=== PATIENT | female | born 1960 | race Caucasian/White ===

== ENCOUNTER 2020-12-17 06:45 | Day surgery (SDC) | payer OTHER ==
[2020-12-16 10:30] LABS: COVID AG,FIA SOURCE NASOPHARYNGEAL
[~2020-12-17] VITALS: Ht 157.5 cm; Wt 70.5 kg
[~2020-12-17 06:45] MED LIST: ALBU90AE IH; ASPI-1522 PO; DOXY100C40 PO; FAMO20TA8 PO; FLUT16H NASAL; METF-960 PO; MONT10TA32 PO; PRED10 PO
[2020-12-17] MEDS ORDERED: LIDOCAINE 4% 50 ML SOLUTION TP ONE (06:46)
[2020-12-17] MEDS ORDERED: LIDOCAINE 2% 30 ML JELLY TP ONE (06:46)
[2020-12-17] MEDS ORDERED: BENZOCAINE 20% 50 MCG/SPRAY 57 GM TP ONE (06:46)
[2020-12-17] MEDS ORDERED: ALBUTEROL SULFATE 2.5 MG/0.5 ML NEB SOLUTION NEB ONE (06:46)
[2020-12-17] MEDS ORDERED: SODIUM CHLORIDE 0.9% 1,000 ML IV ONE (07:00)
[2020-12-17] MEDS ORDERED: SODIUM CHLORIDE 0.9% 1,000 ML ONE (07:04)
[2020-12-17 07:42] LABS: GLUCOMETER DEV NAME(LOC) SDS.; GLUCOSE,POINT OF CARE 116 MG/DL (70-110)
[2020-12-17] MEDS ORDERED: FentaNYL CITRATE PF 100 MCG/2 ML VIAL ONE (08:10)
[2020-12-17] MEDS ORDERED: MIDAZOLAM HCL 2 MG/2 ML VIAL ONE (08:10)
[2020-12-17] MEDS ORDERED: MethylPREDNISolone SOD SUCC 125 MG/2 ML VIAL IVP ONE (09:00)
[2020-12-17] MEDS ORDERED: MethylPREDNISolone SOD SUCC 125 MG/2 ML VIAL ONE (09:22)
[2020-12-17] MEDS ORDERED: OXYGEN THERAPY IH SCH (20:00)
== END 2020-12-17 10:30 | disposition home or self-care (01) ==
LOC: SURGERY 06:45
PROVIDERS: ATTEND Internal Medicine Critical Care Medicine
DX: R05 Cough (principal); R91.1 Solitary pulmonary nodule; R06.2 Wheezing; R49.0 Dysphonia; J84.9 Interstitial pulmonary disease, unspecified; Z20.822 Contact with and (suspected) exposure to COVID-19; J34.89 Other specified disorders of nose and nasal sinuses; J98.8 Other specified respiratory disorders; J38.4 Edema of larynx; B37.0 Candidal stomatitis; I10 Essential (primary) hypertension; E11.9 Type 2 diabetes mellitus without complications; Z79.899 Other long term (current) drug therapy; Z98.890 Other specified postprocedural states
CPT/HCPCS: 31623; 31624; 71045; 82962; 87015; 87070; 87101; 87205; 87206; 87220; 87426; 88108; 88184; 88185; 88312; C9803; J2250; J2930; J3010; J7030; J7613; Z7610

== ENCOUNTER 2021-08-12 12:51 | Observation (INO) | payer OTHER ==
[~2021-08-12] VITALS: Ht 157.5 cm; Wt 70.0 kg
[~2021-08-12 12:51] MED LIST changes: -BECL10.62 IH; -FentaNYL CITRATE PF 100 MCG/2 ML VIAL ONE; -LORazepam 2 MG/ML VIAL IVP ONE; -LORazepam 2 MG/ML VIAL ONE; -MIDAZOLAM HCL 5 MG/ML VIAL ONE; -MethylPREDNISolone SOD SUCC 125 MG/2 ML VIAL IVP ONE; -MethylPREDNISolone SOD SUCC 125 MG/2 ML VIAL ONE; -OXYGEN THERAPY IH SCH; -SODIUM CHLORIDE 0.9% 1,000 ML IV ONE; -SODIUM CHLORIDE 0.9% 1,000 ML ONE
[2021-08-12 13:32] LABS: EOSINOPHILS % (AUTO) 0 % (1.0-6.0); HEMATOCRIT 37.2 % (36-46); HEMOGLOBIN 11.9 g/dL (12.0-16.0); LYMPHOCYTES # (AUTO) 0.5 K/uL (1.0-4.8); LYMPHOCYTES % (AUTO) 3.7 % (22.0-44.0); MEAN CORPUSCULAR HEMOGLOBIN 27.9 pg (26.0-34.0); MEAN CORPUSCULAR HGB CONC 31.8 G/dL (31.0-37.0); MEAN CORPUSCULAR VOLUME 88 fL (80-100); MONOCYTES # (AUTO) 0.1 K/uL (0.1-1.0); MONOCYTES % (AUTO) 1.1 % (2.0-9.0); NEUTROPHILS # (AUTO) 12.2 K/uL (1.8-7.7); NEUTROPHILS % (AUTO) 95.2 % (40.0-70.0); PLATELET COUNT (AUTO) 327 K/uL (150-450); RED BLOOD CELL COUNT(AUTO) 4.24 MIL/uL (4.00-5.20); RED CELL DISTRIBUTION WIDTH 13.5 % (11.5-14.5)
[2021-08-12 13:35] LABS: ANION GAP 14 mmol/L (8-16); CALCIUM, TOTAL 8.1 mg/dL (8.8-10.5); CARBON DIOXIDE 24 mmol/L (22-29); CHLORIDE 106 mmol/L (98-107); CREATININE 0.72 mg/dL (0.60-1.30); GLOMERULAR FILTR. RATE CALC > 60 mL/min (>60); GLUCOSE,RANDOM 261 mg/dL (70-110); POTASSIUM 3.5 mmol/L (3.5-5.1); SODIUM SERUM 144 mmol/L (136-145); UREA NITROGEN, BLOOD 13 mg/dL (7-18)
[2021-08-12 13:41] LABS: ALANINE AMINOTRANSFERASE 21 U/L (12-78); ALBUMIN 3.5 g/dL (3.4-5.0); ALKALINE PHOSPHATASE 58 U/L (46-116); ASPARTATE AMINOTRANSFERASE 20 U/L (15-37); BILIRUBIN,TOTAL 0.2 mg/dL (0.1-1.0); LIPASE 126 U/L (73-393); TOTAL PROTEIN, SERUM 7.3 g/dL (6.4-8.2)
[2021-08-12] MEDS ORDERED: ACETAMINOPHEN 325 MG TABLET PO ONE (13:45)
[2021-08-12] MEDS ORDERED: SODIUM CHLORIDE 0.9% 1,000 ML IV ONE ×3 (13:45→16:45)
[2021-08-12 13:46] LABS: LACTIC ACID 4.3 mmol/L (0.4-2.0)
[2021-08-12 13:47] LABS: B-TYPE NATRIURETIC PEPTIDE 26 pg/mL (0-100)
[2021-08-12] MEDS ORDERED: PIPERACILLIN SODIUM/TAZOBACTAM 4.5 GM in DEXTROSE 5%-WATER 100 ML IV ONE (15:45)
[2021-08-12] MEDS ORDERED: VANCOMYCIN HCL 1.25 GM in DEXTROSE 5%-WATER 250 ML IV ONE (15:45)
[2021-08-12] MEDS ORDERED: ONDANSETRON HCL 4 MG/2 ML VIAL IVP PRN ×2 (16:30→16:45)
[2021-08-12] MEDS ORDERED: 0.9% SODIUM CHLORIDE 10 ML SYRINGE IVP PRN (16:30)
[2021-08-12] MEDS ORDERED: ACETAMINOPHEN 325 MG TABLET PO PRN ×2 (16:30→16:45)
[2021-08-12] MEDS ORDERED: SODIUM CHLORIDE 0.9% 100 ML ONE (16:35)
[2021-08-12] MEDS ORDERED: ALBUTEROL SULFATE HFA 90 MCG/PUFF 8 GM INHALER IH PRN (16:45)
[2021-08-12] MEDS ORDERED: MAGNESIUM HYDROXIDE SUSPENSION 30 ML UDCUP PO PRN (16:45)
[2021-08-12] MEDS ORDERED: BISACODYL 10 MG RECTAL RECTAL SUPPOSITORY PR PRN (16:45)
[2021-08-12] MEDS ORDERED: HYDROCODONE/ACETAMINOPHEN 5-325 MG TABLET PO PRN (16:45)
[2021-08-12] MEDS ORDERED: *CLINICAL-LEVOFLOXACIN IVPB DOSING CLINICAL ONE (16:45)
[2021-08-12] MEDS ORDERED: ZOLPIDEM TARTRATE 5 MG TABLET PO PRN (16:45)
[2021-08-12] MEDS ORDERED: MORPHINE SULFATE 2 MG/ML SYRINGE IVP PRN (16:45)
[2021-08-12 16:46] LABS: COVID AG,FIA SOURCE NASOPHARYNGEAL
[2021-08-12 16:48] LABS: CREATINE KINASE, TOTAL ONLY 145 U/L (26-192)
[2021-08-12] MEDS ORDERED: DEXTROSE 50%-WATER 25 GM/50 ML SYRINGE IVP PRN (17:00)
[2021-08-12] MEDS ORDERED: INSULIN LISPRO 100 UNITS/ML SQ PRN (17:00)
[2021-08-12] MEDS: CLINDAMYCIN 600 MG/D5% WATER 50 ML IV SCH ×2 (17:37→23:21)
[2021-08-12] MEDS ORDERED: LEVOFLOXACIN 750 MG/D5% WATER 150 ML IV SCH (18:00)
[2021-08-12 18:56] VITALS: BP 134/87
[2021-08-12 19:34] VITALS: BP 118/72
[2021-08-12] MEDS: DOCUSATE SODIUM 100 MG CAPSULE PO SCH (20:40)
[2021-08-12] MEDS: HEPARIN SODIUM,PORCINE 5,000 UNITS/ML VIAL SQ SCH (23:20)
[2021-08-12 23:21] VITALS: BP 132/72
[2021-08-13 04:04] VITALS: BP 112/63
[2021-08-13 06:55] LABS: BASOPHILS % (AUTO) 0.2 % (0.0-2.0); EOSINOPHILS % (AUTO) 0.1 % (1.0-6.0); HEMATOCRIT 37.8 % (36-46); LYMPHOCYTES # (AUTO) 2.3 K/uL (1.0-4.8); LYMPHOCYTES % (AUTO) 18.1 % (22.0-44.0); MEAN CORPUSCULAR HEMOGLOBIN 27.9 pg (26.0-34.0); MEAN CORPUSCULAR HGB CONC 31.6 G/dL (31.0-37.0); MEAN CORPUSCULAR VOLUME 88 fL (80-100); MONOCYTES # (AUTO) 0.9 K/uL (0.1-1.0); MONOCYTES % (AUTO) 7.3 % (2.0-9.0); NEUTROPHILS # (AUTO) 9.3 K/uL (1.8-7.7); NEUTROPHILS % (AUTO) 74.3 % (40.0-70.0); PLATELET COUNT (AUTO) 313 K/uL (150-450); RED BLOOD CELL COUNT(AUTO) 4.29 MIL/uL (4.00-5.20); RED CELL DISTRIBUTION WIDTH 13.7 % (11.5-14.5)
[2021-08-13 07:17] LABS: ALANINE AMINOTRANSFERASE 22 U/L (12-78); ALBUMIN 3.3 g/dL (3.4-5.0); ALKALINE PHOSPHATASE 54 U/L (46-116); ANION GAP 9 mmol/L (8-16); ASPARTATE AMINOTRANSFERASE 14 U/L (15-37); BILIRUBIN,TOTAL 0.4 mg/dL (0.1-1.0); CALCIUM, TOTAL 8.6 mg/dL (8.8-10.5); CARBON DIOXIDE 26 mmol/L (22-29); CHLORIDE 108 mmol/L (98-107); CREATININE 0.54 mg/dL (0.60-1.30); GLOMERULAR FILTR. RATE CALC > 60 mL/min (>60); GLUCOSE,RANDOM 96 mg/dL (70-110); POTASSIUM 4.4 mmol/L (3.5-5.1); SODIUM SERUM 143 mmol/L (136-145); TOTAL PROTEIN, SERUM 7.5 g/dL (6.4-8.2); UREA NITROGEN, BLOOD 8 mg/dL (7-18)
[2021-08-13 07:20] VITALS: BP 117/64
[2021-08-13] MEDS ORDERED: SODIUM CHLORIDE 0.9% 250 ML IV ONE (08:01)
[2021-08-13] MEDS: CLINDAMYCIN 600 MG/D5% WATER 50 ML IV SCH (08:06)
[2021-08-13] MEDS: DOCUSATE SODIUM 100 MG CAPSULE PO SCH (08:07)
[2021-08-13] MEDS: HEPARIN SODIUM,PORCINE 5,000 UNITS/ML VIAL SQ SCH (08:08)
[2021-08-13] MEDS ORDERED: MONTELUKAST SODIUM 10 MG TABLET PO SCH (09:00)
[2021-08-13] MEDS ORDERED: FLUTICASONE PROPIONATE 50 MCG/SPRAY 16 GM NASAL SPRAY NASAL SCH (09:00)
[2021-08-13] MEDS ORDERED: MetFORMIN HCL 500 MG TABLET PO SCH (09:00)
[2021-08-13] MEDS ORDERED: PANTOPRAZOLE SODIUM 40 MG DR TABLET PO SCH (09:00)
[2021-08-13] MEDS ORDERED: ASPIRIN 81 MG DR TABLET PO SCH (09:00)
[2021-08-13] MEDS ORDERED: PredniSONE 10 MG TABLET PO SCH (09:00)
[2021-08-13 11:11] VITALS: BP 130/70
[2021-08-13] MEDS ORDERED: BECL10.62 IH (15:18)
[2021-08-13 18:27] LABS: GLUCOMETER DEV NAME(LOC) 5N.1C; GLUCOSE,POINT OF CARE 166 MG/DL (70-110)
[2021-08-13 20:44] LABS: GLUCOMETER DEV NAME(LOC) 5S.1; GLUCOSE,POINT OF CARE 80 MG/DL (70-110)
== END 2021-08-13 16:00 | disposition home or self-care (01) ==
LOC: EMS 12:55 → 5S 18:12 → INTOOBSV 18:12
PROVIDERS: ADMIT Internal Medicine; ATTEND Internal Medicine
DX: I49.8 Other specified cardiac arrhythmias (principal); R65.10 Systemic inflammatory response syndrome (SIRS) of non-infectious origin without acute organ dysfunction; Z20.822 Contact with and (suspected) exposure to COVID-19; D64.9 Anemia, unspecified; B37.0 Candidal stomatitis; J45.909 Unspecified asthma, uncomplicated; E87.2 Acidosis; E11.9 Type 2 diabetes mellitus without complications; Z79.82 Long term (current) use of aspirin; Z79.84 Long term (current) use of oral hypoglycemic drugs; Z79.899 Other long term (current) drug therapy
CPT/HCPCS: 36415 ×2; 71045; 71275; 80053 ×2; 82550; 82962; 83605 ×2; 83690; 83880; 84484; 85025 ×2; 87040; 87426; 93005; 96361 ×2; 96365; 96366 ×2; 96367; 96368; 96372 ×2; 96375; 99219 ×2; 99291; J1644 ×2; J1956; J2405; J2543; J3370; J3490; J7030; J7050 ×2; J7060 ×2; J7512; G0378; 93366; Z7610

== ENCOUNTER → 2021-08-12 | Day surgery (SDC) | payer OTHER ==
[~2021-08-12] VITALS: Ht 157.5 cm; Wt 70.4 kg
[~2021-08-12] MED LIST changes: +BECL10.62 IH; +DOXY-336 PO; -DOXY100C40 PO; +FentaNYL CITRATE PF 100 MCG/2 ML VIAL ONE; +LORazepam 2 MG/ML VIAL IVP ONE; +LORazepam 2 MG/ML VIAL ONE; +MIDAZOLAM HCL 5 MG/ML VIAL ONE; +MethylPREDNISolone SOD SUCC 125 MG/2 ML VIAL IVP ONE; +MethylPREDNISolone SOD SUCC 125 MG/2 ML VIAL ONE; +OXYGEN THERAPY IH SCH; +SODIUM CHLORIDE 0.9% 1,000 ML IV ONE; +SODIUM CHLORIDE 0.9% 1,000 ML ONE
[2021-08-12 06:41] LABS: COVID AG,FIA SOURCE NASOPHARYNGEAL
[2021-08-12 07:29] LABS: GLUCOMETER DEV NAME(LOC) SDS.; GLUCOSE,POINT OF CARE 93 MG/DL (70-110)
== END | disposition home or self-care (01) ==
LOC: SURGERY 06:14
PROVIDERS: ATTEND Internal Medicine Critical Care Medicine
DX: J38.4 Edema of larynx (principal); B37.0 Candidal stomatitis; E11.9 Type 2 diabetes mellitus without complications; Z79.899 Other long term (current) drug therapy; Z98.890 Other specified postprocedural states; Z79.82 Long term (current) use of aspirin
CPT/HCPCS: 31623; 31624; 71045; 82962; 87015; 87070; 87101; 87205; 87206; 87220; 87426; 88108; 88184; 88185; 88312; 93005; C9803; J2060; J2250; J2930; J3010; J7030